=== PATIENT | female | born 2000 | race Caucasian/White ===

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

== ENCOUNTER 2023-06-16 12:23 | Emergency (ER) | payer BC ==
[2023-06-16] MEDS ORDERED: Pepcid 20 MG VIAL IV ONE ×2 (12:36→13:00)
[2023-06-16] MEDS ORDERED: BENADRYL 50 MG/ML IV ONE (12:36)
[2023-06-16] MEDS ORDERED: Sodium Chloride 0.9% 1000 ML 1,000 ML IV STA ×2 (12:36→12:59)
[2023-06-16 12:43] VITALS: TEMP 96.2
--- NOTE | 2023-06-16 12:49 | ERPHSYRPT ---
- History of Present Illness Time Seen by Provider: 06/16/23 12:35 Historian: patient Exam Limitations: no limitations Patient Subjective Stated Complaint: pt woke this morning vomiting and diarrhea Triage Nursing Assessment: Pt brought to the ER by her mother, vitals wnl, denies pain, denies being around anyone sick that she is aware, pulses normal, skin n/w/d, sister did have covid 3 weeks ago, chronic cough Physician History: Patient is brought into the emergency room due to having recurrent nausea vomiting and some diarrhea that began the morning of 06/16/2023, with vomiting too numerous to count over the last 4 hours. She has not had any recent travel history, no recent admissions, no recent antibiotics and does deal with a chronic cough for multiple years that it has been felt that it is allergy related so she takes medications for that but no issues with recurrent vomiting. Timing/Duration: hour(s) (4) Activities at Onset: none Quality: aching Abdominal Pain Onset Location: generalized abdomen Severity of Pain-Max: mild Severity of Pain-Current: mild Modifying Factors: Improves With: nothing Associated Symptoms: fatigue, nausea, vomiting, No back, No chest pain, No diaphoresis, No diarrhea, No fever/chills, No headache, No heartburn, No loss of appetite, No neck pain, No rash, No shortness of breath, No syncope, No weakness Previous symptoms: no prior history, other (Patient has been dealing with a cough for years, worse at night when she lays down, has been told it is allergy related and does take medicines for allergies) Allergies/Adverse Reactions: No Known Drug Allergies Allergy (Verified 06/16/23 12:43) Home Medications: Cetirizine HCl [Zyrtec] 10 mg PO DAILY 06/16/23 [History] Venlafaxine HCl ER 75 mg [Effexor XR 75 MG] 75 mg PO DAILY 06/16/23 [History] norethindrone-e.estradioL-iron [Charley 24 Fe Chewable Tab] 1 tab PO DAILY 06/16/23 [History] Hx Tetanus, Diphtheria Vaccination/Date Given: Yes Hx Influenza Vaccination/Date Given: Yes Hx Pneumococcal Vaccination/Date Given: Yes Travel Risk - International Travel Have you traveled outside of the country in past 3 weeks: No - Coronavirus Screening Are you exhibiting any of the following symptoms?: Yes Symptoms: Cough: New Onset, Vomiting/Diarrhea Close contact with a COVID-19 positive Pt in past 14-21 Days: No - Vaccine Status Have you recieved a Covid-19 vaccination: Yes Collision Worker: Moderna - Vaccination Dates Date of 2cond Vaccination (if applicable): 2020 - Review of Systems Constitutional: No Fever, No Chills, No Fatigue Eyes: No Discharge, No Eye Pain, No Photophobia Ears, Nose, & Throat: No Nose Congestion, No Mouth Pain, No Throat Pain, No Painful Swallowing Respiratory: Cough (Chronic in nature, 4 years in duration, worse when laying flat), No Dyspnea Cardiac: No Chest Pain, No Edema, No Syncope Abdominal/Gastrointestinal: Nausea, Vomiting, Diarrhea, No Abdominal Pain, No Hematemesis, No Hematochezia, No Melena Genitourinary Symptoms: No Dysuria, No Hematuria, No Urgency, No Urinary Retention, No Flank Pain Musculoskeletal: No Back Pain, No Neck Pain Skin: No Rash Neurological: No Dizziness, No Focal Weakness, No Headache, No Sensory Changes Psychological: No Anxiety, No Hallucinations Endocrine: No Polyuria, No Polydipsia Hematologic/Lymphatic: No Anemia, No Easy Bleeding Immunological/Allergic: Other (Perennial allergies), No Eczema All Other Systems: Reviewed and Negative - Past Medical History Pertinent Past Medical History: No Neurological History: No Pertinent History ENT History: No Pertinent History Cardiac History: No Pertinent History Respiratory History: No Pertinent History Endocrine Medical History: No Pertinent History Musculoskeletal History: No Pertinent History GI Medical History: No Pertinent History History: No Pertinent History Psycho-Social History: No Pertinent History Female Reproductive Disorders: No Pertinent History Other Medical History: hx uti, has gained 75-80 pounds in the past 2 years and went to an [facility] this past week for testing - Past Surgical History Past Surgical History: No Neuro Surgical History: No Pertinent History Cardiac: No Pertinent History Respiratory: No Pertinent History Gastrointestinal: No Pertinent History Genitourinary: No Pertinent History Musculoskeletal: No Pertinent History Female Surgical History: No Pertinent History - Social History Smoking Status: Never smoker Exposure to second hand smoke: No Drug Use: none Patient Lives Alone: No - Female History Hx Last Menstrual Period: 06/15/2023 Hx Now: No - Nursing Vital Signs Nursing Vital Signs: Initial Vital Signs Temperature 96.2 F 06/16/23 12:34 Pulse Rate 84 06/16/23 12:34 Respiratory Rate 16 06/16/23 12:34 Blood Pressure 111/79 06/16/23 12:34 O2 Sat by Pulse Oximetry 96 06/16/23 12:34 Pain Scale Pain Intensity 4 - Physical Exam General Appearance: no apparent distress, alert Eye Exam: PERRL/EOMI, eyes nml inspection Ears, Nose, Throat Exam: normal ENT inspection, TMs normal, pharynx normal, moist mucous membranes Neck Exam: normal inspection, non-tender, supple, full range of motion, No JVD Respiratory Exam: normal breath sounds, airway intact, rhonchi (right lower airways), No respiratory distress, No diminished breath sounds, No accessory muscle use, No prolonged expirations, No crackles/rales, No stridor Cardiovascular Exam: regular rate/rhythm, normal heart sounds, capillary refill <2 sec Gastrointestinal/Abdomen Exam: soft, normal bowel sounds, No tenderness, No distention, No mass, No guarding, No rebound Back Exam: normal inspection, normal range of motion, No CVA tenderness, No vertebral tenderness Extremity Exam: normal inspection, normal range of motion, pelvis stable Neurologic Exam: alert, oriented x 3, cooperative, manager intel II-XII nml as tested, normal mood/affect, nml cerebellar function, sensation nml, No motor deficits Skin Exam: normal color, warm, dry Lymphatic Exam: No adenopathy SpO2 Interpretation: normal SpO2: 96 O2 Delivery: Room Air - Course Nursing assessment & vital signs reviewed: Yes - Radiology Exams Abdomen X-ray Interpretation: Interpreted by me, Reviewed by me, No Pneumonia, No Pneumothorax, No Infiltrates, Other (No abnormal air-fluid levels, no free air, no abnormal calcifications in the abdomen) - CT Exams Chest CT Interpretation: Tele-radiologist Report, Other (1. Faint bilateral posterior subpleural pulmonary groundglass opacities, the appearance could be related to atelectatic/dependency changes or remotely mild inflammatory process; 2. Both lungs are otherwise clear with no evidence of nodules, masses or consolidations; 3. Anterior metastatic prevasc) Abdomen/Pelvis CT Interpretation: Tele-radiologist Report, Other (CT abdomen pelvis with IV contrast per radiology interpretation shows normal contrast-enhanced CT scan examination of the abdomen and pelvis) Ordered Tests: Active Orders 24 hr Category Date Time Status IV Insertion STAT Care 06/16/23 12:36 Active ABDOMEN AND PELVIS W CONTRAST [CT] Stat Exams 06/16/23 14:57 Completed CHEST WITH CONTRAST [CT] Stat Exams 06/16/23 14:57 Completed OBSTR/ACUTE ABDOMEN SERIES Stat Exams 06/16/23 13:33 Taken BNPII [NT PRO BNPII] Stat Lab 06/16/23 Completed CBC W DIFF Stat Lab 06/16/23 12:45 Completed CMP Stat Lab 06/16/23 12:45 Completed CULTURE,URINE Stat Lab 06/16/23 12:43 Received HCG QUALITATIVE, URINE Stat Lab 06/16/23 12:45 Completed LIPASE Stat Lab 06/16/23 12:45 Completed Lactic Acid Stat Lab 06/16/23 12:55 Completed Lactic Acid Stat Lab 06/16/23 14:59 Completed MAG [MAGNESIUM] Stat Lab 06/16/23 12:45 Completed PROTIME WITH INR Stat Lab 06/16/23 12:45 Completed UA W/RFX UR CULTURE Stat Lab 06/16/23 12:43 Completed Urine Triage Profile Stat Lab 06/16/23 13:04 Completed Medication Summary Discontinued Medications Generic Name Dose Route Start Last Admin Trade Name Freq PRN Reason Stop Dose Admin Diphenhydramine HCl 25 mg 06/16/23 12:36 06/16/23 13:02 Diphenhydramine Hcl 50 Mg/Ml Vial IV 06/16/23 12:37 25 mg STAT ONE Administration Diphenhydramine HCl Confirm 06/16/23 13:00 Diphenhydramine Hcl 50 Mg/Ml Vial Administered 06/16/23 13:01 Dose 50 mg .ROUTE .STK-MED ONE Famotidine 20 mg 06/16/23 12:36 06/16/23 13:02 Famotidine 20 Mg/1 Vial IV 06/16/23 12:37 20 mg STAT ONE Administration Famotidine Confirm 06/16/23 13:00 Famotidine 20 Mg/1 Vial Administered 06/16/23 13:01 Dose 20 mg IV .STK-MED ONE Sodium Chloride 1,000 mls @ 999 mls/hr 06/16/23 12:36 06/16/23 14:06 Sodium Chloride 0.9% 1000 Ml IV 06/16/23 13:36 Infused .Q1H1M STA Infusion Sodium Chloride 1,000 mls @ 999 mls/hr 06/16/23 12:59 06/16/23 14:06 Sodium Chloride 0.9% 1000 Ml IV 06/16/23 13:59 Infused .Q1H1M STA Infusion Sodium Chloride Confirm 06/16/23 13:00 Sodium Chloride 0.9% 1000 Ml Administered 06/16/23 13:01 Dose 1,000 mls @ ud .ROUTE .STK-MED ONE Sodium Chloride Confirm 06/16/23 13:00 Sodium Chloride 0.9% 1000 Ml Administered 06/16/23 13:01 Dose 1,000 mls @ ud .ROUTE .STK-MED ONE Lab/Rad Data: Laboratory Result Diagrams 06/16/23 12:45 06/16/23 12:45 Laboratory Results 06/16/23 06/16/23 06/16/23 Range/Units Unknown 14:59 13:04 WBC (4.0-10.5) x10^3/uL RBC (4.1-5.4) x10^6/uL Hgb (12.0-16.0) g/dL Hct (35-47) % MCV (78-100) fL MCH (26-32) pg MCHC (32-36) g/dL RDW (11.5-14.0) % Plt Count (150-450) x10^3/uL MPV (7.5-11.0) fL Gran % (36.0-66.0) % Immature Gran % (Auto) (0.00-0.4) % Nucleat RBC Rel Count (0.00-0.1) % Eos # (Auto) (0-0.5) x10^3/uL Immature Gran # (Auto) (0.00-0.03) x10^3u/L Absolute Lymphs (auto) (1.0-4.6) x10^3/uL Absolute Monos (auto) (0.0-1.3) x10^3/uL Absolute Nucleated RBC (0.00-0.01) x10^3u/L Lymphocytes % (24.0-44.0) % Monocytes % (0.0-12.0) % Eosinophils % (0.00-5.0) % Basophils % (0.0-0.4) % Absolute Granulocytes (1.4-6.9) x10^3/uL Basophils # (0-0.4) x10^3/uL PT (9.4-12.5) SECONDS INR (0.8-3.0) Sodium (137-145) mmol/L Potassium (3.5-5.1) mmol/L Chloride (98-107) mmol/L Carbon Dioxide (22-30) mmol/L Anion Gap (5-15) MEQ/L BUN (7-17) mg/dL Creatinine (0.52-1.04) mg/dL Estimated GFR ML/MIN Glucose (74-106) mg/dL Lactic Acid 1.5 (0.4-2.0) Calcium (8.4-10.2) mg/dL Magnesium (1.6-2.3) mg/dL Total Bilirubin (0.2-1.3) mg/dL AST (14-36) U/L ALT (0-35) U/L Alkaline Phosphatase (38-126) U/L NT-Pro-B Natriuret Pep 54.6 (<300) pg/mL Serum Total Protein (6.3-8.2) g/dL Albumin (3.5-5.0) g/dL Lipase (23-300) U/L Urine Color (Yellow) Urine Appearance (Clear) Urine pH (4.6-8.0) Ur Specific [place] (1.005-1.030) Urine Protein (Negative) Urine Glucose (UA) (Negative) mg/dL Urine Ketones (Negative) Urine Blood (Negative) Urine Nitrite (Negative) Urine Bilirubin (Negative) Urine Urobilinogen (0.2) mg/dL Ur Leukocyte Esterase (Negative) U Hyaline Cast (Auto) (0-2) /LPF Urine Microscopic RBC (0-5) /HPF Urine Microscopic WBC (0-5) /HPF Ur Epithelial Cells (None Seen) /HPF Urine Bacteria (None Seen) /HPF Urine Culture Reflexed (NO) Urine HCG, Qual (NEGATIVE) Urine Opiates Level NEGATIVE (NEGATIVE) Ur Methadone NEGATIVE (NEGATIVE) Urine Barbiturates NEGATIVE (NEGATIVE) Ur Phencyclidine (PCP) NEGATIVE (NEGATIVE) Urine Amphetamine NEGATIVE (NEGATIVE) U Benzodiazepine Level NEGATIVE (NEGATIVE) Urine Cocaine NEGATIVE (NEGATIVE) Urine Marijuana (THC) NEGATIVE (NEGATIVE) 09/17/23 09/17/23 09/17/23 Range/Units 12:55 12:45 12:45 WBC (4.0-10.5) x10^3/uL RBC (4.1-5.4) x10^6/uL Hgb (12.0-16.0) g/dL Hct (35-47) % MCV (78-100) fL MCH (26-32) pg MCHC (32-36) g/dL RDW (11.5-14.0) % Plt Count (150-450) x10^3/uL MPV (7.5-11.0) fL Gran % (36.0-66.0) % Immature Gran % (Auto) (0.00-0.4) % Nucleat RBC Rel Count (0.00-0.1) % Eos # (Auto) (0-0.5) x10^3/uL Immature Gran # (Auto) (0.00-0.03) x10^3u/L Absolute Lymphs (auto) (1.0-4.6) x10^3/uL Absolute Monos (auto) (0.0-1.3) x10^3/uL Absolute Nucleated RBC (0.00-0.01) x10^3u/L Lymphocytes % (24.0-44.0) % Monocytes % (0.0-12.0) % Eosinophils % (0.00-5.0) % Basophils % (0.0-0.4) % Absolute Granulocytes (1.4-6.9) x10^3/uL Basophils # (0-0.4) x10^3/uL PT (9.4-12.5) SECONDS INR (0.8-3.0) Sodium (137-145) mmol/L Potassium (3.5-5.1) mmol/L Chloride (98-107) mmol/L Carbon Dioxide (22-30) mmol/L Anion Gap (5-15) MEQ/L BUN (7-17) mg/dL Creatinine (0.52-1.04) mg/dL Estimated GFR ML/MIN Glucose (74-106) mg/dL Lactic Acid 3.0 H (0.4-2.0) Calcium (8.4-10.2) mg/dL Magnesium 2.0 (1.6-2.3) mg/dL Total Bilirubin (0.2-1.3) mg/dL AST (14-36) U/L ALT (0-35) U/L Alkaline Phosphatase (38-126) U/L NT-Pro-B Natriuret Pep (<300) pg/mL Serum Total Protein (6.3-8.2) g/dL Albumin (3.5-5.0) g/dL Lipase (23-300) U/L Urine Color (Yellow) Urine Appearance (Clear) Urine pH (4.6-8.0) Ur Specific [place] (1.005-1.030) Urine Protein (Negative) Urine Glucose (UA) (Negative) mg/dL Urine Ketones (Negative) Urine Blood (Negative) Urine Nitrite (Negative) Urine Bilirubin (Negative) Urine Urobilinogen (0.2) mg/dL Ur Leukocyte Esterase (Negative) U Hyaline Cast (Auto) (0-2) /LPF Urine Microscopic RBC (0-5) /HPF Urine Microscopic WBC (0-5) /HPF Ur Epithelial Cells (None Seen) /HPF Urine Bacteria (None Seen) /HPF Urine Culture Reflexed (NO) Urine HCG, Qual NEGATIVE (NEGATIVE) Urine Opiates Level (NEGATIVE) Ur Methadone (NEGATIVE) Urine Barbiturates (NEGATIVE) Ur Phencyclidine (PCP) (NEGATIVE) Urine Amphetamine (NEGATIVE) U Benzodiazepine Level (NEGATIVE) Urine Cocaine (NEGATIVE) Urine Marijuana (THC) (NEGATIVE) 06/16/23 06/16/23 06/16/23 Range/Units 12:45 12:45 12:45 WBC 16.9 H (4.0-10.5) x10^3/uL RBC 5.20 (4.1-5.4) x10^6/uL Hgb 15.6 (12.0-16.0) g/dL Hct 45.9 (35-47) % MCV 88.3 (78-100) fL MCH 30.0 (26-32) pg MCHC 34.0 (32-36) g/dL RDW 12.1 (11.5-14.0) % Plt Count 404 (150-450) x10^3/uL MPV 9.5 (7.5-11.0) fL Gran % 87.6 H (36.0-66.0) % Immature Gran % (Auto) 0.5 H (0.00-0.4) % Nucleat RBC Rel Count 0.0 (0.00-0.1) % Eos # (Auto) 0 (0-0.5) x10^3/uL Immature Gran # (Auto) 0.08 H (0.00-0.03) x10^3u/L Absolute Lymphs (auto) 1.13 (1.0-4.6) x10^3/uL Absolute Monos (auto) 0.86 (0.0-1.3) x10^3/uL Absolute Nucleated RBC 0.00 (0.00-0.01) x10^3u/L Lymphocytes % 6.7 L (24.0-44.0) % Monocytes % 5.1 (0.0-12.0) % Eosinophils % 0.0 (0.00-5.0) % Basophils % 0.1 (0.0-0.4) % Absolute Granulocytes 14.79 H (1.4-6.9) x10^3/uL Basophils # 0.02 (0-0.4) x10^3/uL PT 9.8 (9.4-12.5) SECONDS INR 0.89 (0.8-3.0) Sodium 143 (137-145) mmol/L Potassium 4.7 (3.5-5.1) mmol/L Chloride 112 H (98-107) mmol/L Carbon Dioxide 15 L* (22-30) mmol/L Anion Gap 21.1 H (5-15) MEQ/L BUN 15 (7-17) mg/dL Creatinine 0.81 (0.52-1.04) mg/dL Estimated GFR > 60.0 ML/MIN Glucose 100 (74-106) mg/dL Lactic Acid (0.4-2.0) Calcium 10.4 H (8.4-10.2) mg/dL Magnesium (1.6-2.3) mg/dL Total Bilirubin 0.50 (0.2-1.3) mg/dL AST 36 (14-36) U/L ALT 27 (0-35) U/L Alkaline Phosphatase 109 (38-126) U/L NT-Pro-B Natriuret Pep (<300) pg/mL Serum Total Protein 8.5 H (6.3-8.2) g/dL Albumin 4.9 (3.5-5.0) g/dL Lipase 192 (23-300) U/L Urine Color (Yellow) Urine Appearance (Clear) Urine pH (4.6-8.0) Ur Specific [place] (1.005-1.030) Urine Protein (Negative) Urine Glucose (UA) (Negative) mg/dL Urine Ketones (Negative) Urine Blood (Negative) Urine Nitrite (Negative) Urine Bilirubin (Negative) Urine Urobilinogen (0.2) mg/dL Ur Leukocyte Esterase (Negative) U Hyaline Cast (Auto) (0-2) /LPF Urine Microscopic RBC (0-5) /HPF Urine Microscopic WBC (0-5) /HPF Ur Epithelial Cells (None Seen) /HPF Urine Bacteria (None Seen) /HPF Urine Culture Reflexed (NO) Urine HCG, Qual (NEGATIVE) Urine Opiates Level (NEGATIVE) Ur Methadone (NEGATIVE) Urine Barbiturates (NEGATIVE) Ur Phencyclidine (PCP) (NEGATIVE) Urine Amphetamine (NEGATIVE) U Benzodiazepine Level (NEGATIVE) Urine Cocaine (NEGATIVE) Urine Marijuana (THC) (NEGATIVE) 06/16/23 Range/Units 12:43 WBC (4.0-10.5) x10^3/uL RBC (4.1-5.4) x10^6/uL Hgb (12.0-16.0) g/dL Hct (35-47) % MCV (78-100) fL MCH (26-32) pg MCHC (32-36) g/dL RDW (11.5-14.0) % Plt Count (150-450) x10^3/uL MPV (7.5-11.0) fL Gran % (36.0-66.0) % Immature Gran % (Auto) (0.00-0.4) % Nucleat RBC Rel Count (0.00-0.1) % Eos # (Auto) (0-0.5) x10^3/uL Immature Gran # (Auto) (0.00-0.03) x10^3u/L Absolute Lymphs (auto) (1.0-4.6) x10^3/uL Absolute Monos (auto) (0.0-1.3) x10^3/uL Absolute Nucleated RBC (0.00-0.01) x10^3u/L Lymphocytes % (24.0-44.0) % Monocytes % (0.0-12.0) % Eosinophils % (0.00-5.0) % Basophils % (0.0-0.4) % Absolute Granulocytes (1.4-6.9) x10^3/uL Basophils # (0-0.4) x10^3/uL PT (9.4-12.5) SECONDS INR (0.8-3.0) Sodium (137-145) mmol/L Potassium (3.5-5.1) mmol/L Chloride (98-107) mmol/L Carbon Dioxide (22-30) mmol/L Anion Gap (5-15) MEQ/L BUN (7-17) mg/dL Creatinine (0.52-1.04) mg/dL Estimated GFR ML/MIN Glucose (74-106) mg/dL Lactic Acid (0.4-2.0) Calcium (8.4-10.2) mg/dL Magnesium (1.6-2.3) mg/dL Total Bilirubin (0.2-1.3) mg/dL AST (14-36) U/L ALT (0-35) U/L Alkaline Phosphatase (38-126) U/L NT-Pro-B Natriuret Pep (<300) pg/mL Serum Total Protein (6.3-8.2) g/dL Albumin (3.5-5.0) g/dL Lipase (23-300) U/L Urine Color Dark Yellow A (Yellow) Urine Appearance Cloudy A (Clear) Urine pH 5.5 (4.6-8.0) Ur Specific [place] >=1.030 A (1.005-1.030) Urine Protein 300 A (Negative) Urine Glucose (UA) Negative (Negative) mg/dL Urine Ketones Trace A (Negative) Urine Blood Large A (Negative) Urine Nitrite Negative (Negative) Urine Bilirubin Moderate A (Negative) Urine Urobilinogen 1.0 A (0.2) mg/dL Ur Leukocyte Esterase Trace A (Negative) U Hyaline Cast (Auto) 3-5 A (0-2) /LPF Urine Microscopic RBC 6-10 A (0-5) /HPF Urine Microscopic WBC 0-2 (0-5) /HPF Ur Epithelial Cells Few (None Seen) /HPF Urine Bacteria None Seen (None Seen) /HPF Urine Culture Reflexed YES (NO) Urine HCG, Qual (NEGATIVE) Urine Opiates Level (NEGATIVE) Ur Methadone (NEGATIVE) Urine Barbiturates (NEGATIVE) Ur Phencyclidine (PCP) (NEGATIVE) Urine Amphetamine (NEGATIVE) U Benzodiazepine Level (NEGATIVE) Urine Cocaine (NEGATIVE) Urine Marijuana (THC) (NEGATIVE) - Progress Progress: improved Progress Note: 06/16/23 14:51 Patient feels much better with the IV Zofran, Pepcid, and IV hydration and her tachycardia has resolved. Reviewed with patient's mother and patient the results of her labs and needs for CT scans of the abdomen and pelvis with no specific etiology on her examination, x-ray imaging to explain her significant elevated white blood cell count and lactic acid, and plus with the cough and what I am hearing on the pulmonary exam with no obvious finding on chest x-ray, get a CT of the chest due to her cough being an issue for 4 years and potentially getting worse over the past 1 month after discussion with patient and her mother 06/16/23 17:05 Patient is feeling much better after IV hydration and medication and has no further tachycardia and her lactic acid has improved 06/16/23 17:12 Patient is a 22-year-old female comes emergency room due to having nausea, vomiting diarrhea some nights with abdominal discomfort in the morning of 06/16/2023, and was found to have an elevated white blood cell count 16.9 elevated lactic acid 3.0 with no other significant abnormalities, so she was treated with IV hydration x2 L and given IV Pepcid and Zofran which helped her symptoms significantly. Her tachycardia resolved with IV hydration, her lactic acid improved, but due to no findings on her x-rays of her acute abdominal series showing any etiology to her elevated white blood cell count and lactic acidosis, she had a CT of her chest, abdomen pelvis performed as she had a chronic cough for 4 years. There is no specific abnormality and CT of the chest, abdomen pelvis per radiologist interpretation. Her lactic acid improved with IV hydration and she had resolution of her tachycardia, and she had no symptoms at time of discharge, so she can be discharged home and she will be given a short supply of Zofran and Lomotil to help with her symptoms. If she has symptoms the next 3 days, she is to follow-up with a primary care provider to follow-up as an outpatient. Patient is time is at low risk and can follow-up as an outpatient and reviewed with patient and her family in detail what signs and symptoms return back to the nearest emergency room including localized abdominal pain, new fever, new melena, hematochezia, new hemoptysis or hem atemesis, new dyspnea, new flank pain, new hematuria, new focal weakness or any other concerning signs or symptoms that were not present at today's emergency department visit for immediate reevaluation in the nearest emergency department. Counseled pt/family regarding: lab results, diagnosis, need for follow-up, rad results Medical Desision Making - Diagnostic Testing Diagnostic test were ordered, analyzed, and reviewed by me: Yes Radiological Interpretation: Reviewed by me, Teleradiologist Report Diagnostic Testing (additional info): Elevated white blood cell count, elevated lactic acid and improved with IV hydration to normal range - Risk of complications Low Risk: Low risk of morbidity from additional dx testing or treatment The pt has a mod risk of morbidity or mortality based on: Need for prescription drug management - Departure Departure Disposition: Home Clinical Impression: Dehydration, Nausea vomiting and diarrhea, Chronic cough Leukocytosis, unspecified Qualifiers: Leukocytosis type: unspecified Qualified Code(s): D72.829 - Elevated white blood cell count, unspecified Condition: Good Critical Care Time: No Referrals: PILAR MORGAN MD [Primary Care Provider] - Follow up with PCP 2 days Instructions: Nausea and Vomiting, Adult (DC), Diarrhea in adolescents and adults, Dehydration, Adult (DC) Additional Instructions: Return back to the nearest emergency room for any fever, chills, shortness of breath, coughing up blood, productive cough, new chest pain, new abdominal pain, black or red stools, blood in your urine, new back pain, new weakness in your arms or legs or any other concerning signs or symptoms that were not present at today's emergency room visit for immediate reevaluation in the nearest emergency department Forms: Work/School Release Form Prescriptions: Ondansetron ODT 4 MG [Zofran Odt 4 mg] 4 mg PO Q8H PRN PRN #10 tablet PRN Reason: Nausea Diphenoxylate HCl/Atropine [Lomotil Tablet] 1 each PO TID PRN #10 tablet PRN Reason: Diarrhea
[2023-06-16] MEDS ORDERED: Sodium Chloride 0.9% 1000 ML 1,000 ML ONE ×2 (13:00)
[2023-06-16] MEDS ORDERED: BENADRYL 50 MG/ML ONE (13:00)
[2023-06-16 13:08] LABS: Absolute Neutrophil Ct (ANC) 14.79 x10^3/uL (1.4-6.9); BASOPHIL % 0.1 % (0.0-0.4); Basophil (Absolute #) 0.02 x10^3/uL (0-0.4); Eosinophil (Absolute #) 0 x10^3/uL (0-0.5); Hematocrit 45.9 % (35-47); Hemoglobin 15.6 g/dL (12.0-16.0); IMMATURE GRAN # 0.08 x10^3u/L (0.00-0.03); IMMATURE GRAN % 0.5 % (0.00-0.4); Lymphocyte (Absolute #) 1.13 x10^3/uL (1.0-4.6); Lymphocytes % 6.7 % (24.0-44.0); Mean Cell Volume 88.3 fL (78-100); Mean Platelet Volume 9.5 fL (7.5-11.0); Monocyte (Absolute #) 0.86 x10^3/uL (0.0-1.3); Monocytes % 5.1 % (0.0-12.0); Neutrophil % 87.6 % (36.0-66.0); Platelet Count 404 x10^3/uL (150-450); Red Cell Distribution Width 12.1 % (11.5-14.0); White Blood Count 16.9 x10^3/uL (4.0-10.5)
[2023-06-16 13:12] LABS: HCG URINE TEST NEGATIVE (NEGATIVE)
[2023-06-16 13:22] LABS: INR 0.89 (0.8-3.0); PROTIME 9.8 SECONDS (9.4-12.5)
[2023-06-16 13:24] LABS: ALBUMIN 4.9 g/dL (3.5-5.0); ALKALINE PHOSPHATASE 109 U/L (38-126); ANION GAP 21.1 MEQ/L (5-15); BLOOD UREA NITROGEN 15 mg/dL (7-17); CHLORIDE 112 mmol/L (98-107); Calcium 10.4 mg/dL (8.4-10.2); Creatinine 1 0.81 mg/dL (0.52-1.04); EST GLOMERULAR FILTRATION RATE > 60.0 ML/MIN; Glucose 100 mg/dL (74-106); LIPASE 192 U/L (23-300); Potassium 4.7 mmol/L (3.5-5.1); SGOT/AST 36 U/L (14-36); SGPT/ALT 27 U/L (0-35); SODIUM 143 mmol/L (137-145); Total Protein 8.5 g/dL (6.3-8.2)
[2023-06-16 13:26] LABS: Carbon Dioxide 15 mmol/L (22-30)
[2023-06-16 13:35] LABS: Appearance Cloudy (Clear); Bacteria None Seen /HPF (None Seen); Bilirubin Moderate (Negative); Blood Large (Negative); Epithelial Cells Few /HPF (None Seen); Glucose, Urine Negative (Negative); Ketones Trace (Negative); Leukocyte Esterase Trace (Negative); Nitrite Negative (Negative); Ph 5.5 (4.6-8.0); Protein,Urine Dip 300 (Negative); Specific Gravity >=1.030 (1.005-1.030); WBC 0-2 /HPF (0-5)
[2023-06-16 13:36] LABS: ADD URINE CULTURE? YES (NO)
[2023-06-16 13:36] LABS: Amphetamine,Urine NEGATIVE (NEGATIVE); Barbiturate,Urine NEGATIVE (NEGATIVE); Benzodiazepine,Urine NEGATIVE (NEGATIVE); Cocaine,Urine NEGATIVE (NEGATIVE); Methadone,Urine NEGATIVE (NEGATIVE); Opiate,Urine NEGATIVE (NEGATIVE); PCP,Urine NEGATIVE (NEGATIVE); THC,Urine NEGATIVE (NEGATIVE)
--- NOTE | 2023-06-16 16:01 | XRAY ---
CLINICAL HISTORY:Cough for 4 years, Lactic Acidosis COMPARISON:None. TECHNIQUE:CT axial cuts were taken through the chest with multiplanar reformatting with 80cc of Isovue 370 as an intravenous contrast. FINDINGS: Faint bilateral posterior subpleural pulmonary ground glass opacities, the appearance could be related to atelectatic/dependency changes or remotely possible mild inflammatory process. Both lungs are otherwise clear with no evidence of nodules, masses, or consolidation. The vascular pattern appears normal with no evidence of bronchovascular distortion. Anterior mediastinal prevascular soft tissue density, likely residual thymic tissue. A small anterior mediastinal lymph node measures about 1 cm in front of the aortic arch, likely non-specific/reactive. No significant hilar or mediastinal lymph susie enlargement. Normal cardiac size and shape with no pericardial effusion. The visualized pleural sacs, chest wall, and axillary spaces display normal appearance. Small non-specific bilateral axillary lymph nodes. Bone window settings showed no evidence of destructive bony lesions. Scanned upper abdominal cuts are unremarkable. IMPRESSION: 1. Faint bilateral posterior subpleural pulmonary ground glass opacities, the appearance could be related to atelectatic/dependency changes or remotely mild inflammatory process. 2. Both lungs are otherwise clear with no evidence of nodules, masses, or consolidation. 3. Anterior mediastinal prevascular soft tissue density, likely thymic tissue. 4. Clinical correlation and follow-up are recommended. Electronically Signed by: Jennifer Saravia MD. (06/16/2023 15:01:10 POULTRY KILLER)
[2023-06-16 16:09] VITALS: O2SAT 96
--- NOTE | 2023-06-16 16:44 | XRAY ---
CLINICAL HISTORY:nausea and vomiting, Leukocytosis COMPARISON:None. TECHNIQUE:CT scan of the abdomen and pelvis after administration of intravenous injection ( 80 ml of Isovue 370) with coronal and sagittal reformatted images. FINDINGS: The liver is of average size, displaying regular contour and homogeneous texture. No diffuse parenchymal changes or focal lesions could be detected. Normal hepatic vascular pattern is noted with no evidence of vascular distortion, thrombotic venous occlusion, or compromise of the hepatic biliary drainage. The spleen is of average size with no abnormal focal parenchymal attenuation or amrita splenic collection. Small splenule is noted. Both kidneys are of average size, shape, and parenchymal thickness with no evidence of stones, back pressure changes, or space-occupying lesions. The other retroperitoneal structures including the pancreas, adrenal glands, and great vessels are grossly within normal limits. No significant lymph susie enlargement or ascetic fluid collection. The uterus, both adnexa and ischiorectal fossae show normal CT appearance. The visualized bowel loops showed no significant abnormalities. Normal filling of the urinary bladder with no stones, masses, or diverticula. Bone window settings showed no evidence of fractures or destructive lesions. Lung window settings showed no focal lesions or consolidation at the lung bases. IMPRESSION: Normal contrast-enhanced CT scan examination of the abdomen and pelvis. Electronically Signed by: Jennifer Saravia MD. (06/16/2023 15:43:16 [employer]ARNING [employer])
[2023-06-16 17:18] VITALS: BP 120/85; PULSE 90; RESP 17
--- NOTE | 2023-06-16 19:59 | XRAY ---
Indication: Vomiting and diarrhea. Comparison: None 2 view abdomen demonstrates mild colonic fluid leveling favoring clinically reported diarrhea. No free air. Solid organs and osseous structures unremarkable. Single PA chest demonstrates normal heart, lungs, and bony thorax.
== END 2023-06-16 17:39 | disposition home or self-care (01) ==
LOC: ED 12:23
DX: E86.0 Dehydration (principal); R11.2 Nausea with vomiting, unspecified; R19.7 Diarrhea, unspecified; R05.3 Chronic cough; D72.829 Elevated white blood cell count, unspecified; Z79.899 Other long term (current) drug therapy
CPT/HCPCS: 36415; 71260; 74022; 74177; 80053; 80307; 81001; 81025; 83605; 83690; 83735; 83880; 85025; 85610; 87086; 96360; 96374; 96375; 99284; J1200